=== PATIENT | female | born 1985 ===

== ENCOUNTER 2022-02-25 05:46 | Emergency (ER) | payer SELFPAY ==
[2022-02-25 05:55] VITALS: BP 122/79
--- NOTE | 2022-02-25 06:32 | XRay Report ---
CHEST 2 VIEWS INDICATION / CLINICAL INFORMATION: cough. COMPARISON: None available. FINDINGS: SUPPORT DEVICES: None. HEART / MEDIASTINUM: Heart size and mediastinal contour appear within normal limits. LUNGS / PLEURA: No significant pulmonary or pleural abnormality. No pneumothorax. BONES: No significant osseous abnormality. ADDITIONAL FINDINGS: No significant additional findings. IMPRESSION: 1. No active cardiopulmonary disease. Signer Name: Terry Jules II, MD Signed: 02/25/2022 6:28 AM Workstation Name: [id number]
== END 2022-02-25 13:00 | disposition left against medical advice (07) ==
LOC: ED 05:46
DX: U07.1 COVID-19 (principal); R05.9 Cough, unspecified; Z53.21 Procedure and treatment not carried out due to patient leaving prior to being seen by health care provider
CPT/HCPCS: 71046